=== PATIENT | female | born 1970 | race Caucasian/White ===

== ENCOUNTER 2020-07-28 08:32 | Emergency (ER) | payer BC, OTHER ==
[2020-07-29 10:37] LABS: SARS-CoV-2 MS2 Positive; SARS-CoV-2 N Gene Negative; SARS-CoV-2 S Gene Negative; SARS-CoV-2 by NAA Not Detected (NotDetected); SARS-CoV-2 orf1ab Negative
== END 2020-07-28 09:20 | disposition home or self-care (01) ==
LOC: BURERS 08:32
DX: R06.02 Shortness of breath (principal); R50.9 Fever, unspecified; Z20.828 Contact with and (suspected) exposure to other viral communicable diseases; F41.9 Anxiety disorder, unspecified
CPT/HCPCS: 87635; 99283; U0003